=== PATIENT | female | born 1995 | race Caucasian/White ===

== ENCOUNTER 2020-03-03 23:42 | Emergency (ER) | payer SELFPAY ==
[~2020-03-03] VITALS: Ht 160 cm; Wt 56.7 kg
[2020-03-03 23:51] VITALS: BP 121/79
--- NOTE | 2020-03-03 23:51 | NUR ---
ED Nurse Note: pt walked into ED from home d/t right big toe laceration after a can fell on toe. toe nail appears cracked, clotted blood on nail. Not actively bleeding.
--- NOTE | 2020-03-04 00:04 | NUR ---
ED Nurse Note: EDMD at bedside administering analgesic medication to right big toe.
--- NOTE | 2020-03-04 00:08 | Emergency Room Report ---
History of Present Illness General Chief Complaint: Laceration Source: Patient Present Illness HPI Is a 25-year-old female with no significant past medical history. She presents with chief complaint of injury to her left great toe. She dropped a can that way about two and half pounds directly into her toe. There is some breakthrough the nail and appear to be a laceration of the nailbed also. Bleeding is c ontrolled now. Pain is 8 out of 10. Worse with walking. Better with rest. No other injury. Allergies: Coded Allergies: No Known Allergies (Unverified , 03/03/20) COVID-19 Screening Contact w/high risk pt: No Experienced COVID-19 symptoms?: No COVID-19 Testing performed OUTSIDE [facility]: No Patient History Past Medical History: see triage record, old chart reviewed Past Surgical History: Pertinent Family History: none Social History: Denies: smoking Last Menstrual Period: 02/03/2020 Now: No : 1 Para: 1 Immunizations: other Reviewed Nursing Documentation: PMH: Agreed; PSxH: Agreed Nursing Documentation-PMH Past Medical History: No History, Except For Hx Neurological Problems: Yes - neck surgery Review of Systems Eye: Denies: eye pain, blurred vision ENT: Denies: ear pain, nose congestion, throat swelling Respiratory: Denies: cough, shortness of breath Cardiovascular: Denies: chest pain, palpitations Gastrointestinal: Denies: abdominal pain, diarrhea, nausea, vomiting Musculoskeletal: Denies: back pain, joint pain Skin: Denies: rash Neurological: Denies: headache, numbness Endocrine: Denies: increased thirst, increased urine Hematologic/Lymphatic: Denies: easy bruising All Other Systems: negative except mentioned in HPI Physical Exam Vital Signs Date Time Temp Pulse Resp B/P (MAP) Pulse Ox O2 Delivery O2 Flow Rate FiO2 03/03/20 23:44 97.3 87 18 116/70 (85) 98 Room Air Vitals normal Sp02 EP Interpretation: reviewed, normal General Appearance: well appearing, no apparent distress, alert Head: normocephalic, atraumatic Eyes: bilateral eye PERRL, bilateral eye EOMI ENT: hearing grossly normal, normal pharynx Neck: full range of motion, supple, no meningismus Respiratory: chest non-tender, lungs clear, normal breath sounds Cardiovascular #1: regular rate, rhythm, no murmur Gastrointestinal: normal bowel sounds, non tender, no mass, no organomegaly, no bruit, non-distended Musculoskeletal: back normal, normal range of motion, gait/station normal, other - Left great toe: There is a laceration to the nail approximately 1 cm with underlying nailbed injury. No pain over the MTP joint. Sensation normal. Psychiatric: mood/affect normal Procedures Laceration/Wound Repair Laceration/Wound Repair : Consent: Verbal Wound Location: lower extremity Wound Length (cm): 2 Wound Explored: clean Irrigated w/ Saline (ccs): 1000 Anesthesia: 1% Lidocaine Volume Anesthetic (ccs): 4 Wound Repaired With: sutures Suture Size/Type: 6:0, nylon Number of Sutures: 4 Patient Tolerated: Well Complications: None Progress Area cleaned with chlorhexidine. I did local digital block with 1% lidocaine with epinephrine. She required small amount of injection at the tip of the toe also. I removed a small piece of fracture nail. I then put in 4 interrupted 6- 0 Ethilon suture. Medical Decision Making Diagnostic Impression: Primary Impression: Injury of toenail of left foot Qualified Codes: S99.922A - Unspecified injury of left foot, initial encounter Additional Impression: Nailbed laceration, toe Qualified Codes: S91.219A - Laceration without foreign body of unspecified toe(s) with damage to nail, initial encounter ER Course Patient with toenail injury with a nailbed laceration. I offered to do x-rays to rule out tuft fracture but patient refused. I removed part of the nail and sutured the nailbed laceration. Last Vital Signs Date Time Temp Pulse Resp B/P (MAP) Pulse Ox O2 Delivery O2 Flow Rate FiO2 03/03/20 23:44 97.3 87 18 116/70 (85) 98 Room Air Status: improved Disposition: HOME, SELF-CARE Condition: Stable Scripts Cephalexin* (KEFLEX*) 500 Mg Capsule 500 MG ORAL TID, #21 CAP Prov: Oscar Chandra MD 03/04/20 Ibuprofen* (MOTRIN*) 600 Mg Tablet 600 MG ORAL Q6H PRN for For Pain, #30 TAB 0 Refills Prov: Oscar Chandra MD 03/04/20 Referrals: Marilin Penaloza MD (PCP) Patient Instructions: Laceration Care, Adult Additional Instructions: Follow-up with your doctor in 7 to 10 days for suture removal. Return if symptoms worsen. Oscar Chandra MD Mar 04, 2020 00:08
[2020-03-04] MEDS ORDERED: Cephalexin 500mg cap ORAL ONE (00:30)
[2020-03-04] MEDS ORDERED: HYDROcodone/Acetamin 5/325 tab ORAL ONE (00:30)
[2020-03-04] MEDS ORDERED: Neosporin Oint Ud Pkt TOPIC ONE (00:30)
[2020-03-04] MEDS ORDERED: IBUPROFEN600 M1 ORAL (00:33)
[2020-03-04] MEDS ORDERED: CEPHALEXIN500 MG ORAL (00:33)
[2020-03-04 00:45] VITALS: BP 124/81
--- NOTE | 2020-03-04 00:45 | NUR ---
ER DISCHARGE NOTE: Patient is cleared to be discharged per ERMD, pt is aox4, on room air, with stable vital signs. Sutures placed by EDMD on right big toe, antibiotic ointment applied and wrapped in clean dry gauze. pt was given dc and paper prescription with instructions to f/u with PMD in 7-10 days for suture removal, pt was able to verbalize understanding, pt id band removed. pt is able to ambulate with steady gait. pt took all belongings.
== END 2020-03-04 00:45 | disposition home or self-care (01) ==
LOC: EMR 23:59
DX: S91.212A Laceration without foreign body of left great toe with damage to nail, initial encounter (principal); W22.8XXA Striking against or struck by other objects, initial encounter; Y93.9 Activity, unspecified; Y92.9 Unspecified place or not applicable
CPT/HCPCS: 99282